=== PATIENT | male | born 1985 | race Two or more races ===

== ENCOUNTER 2016-04-29 14:10 | Emergency (ER) | payer SELFPAY ==
[~2016-04-29] VITALS: Ht 165.1 cm; Wt 68.0 kg
[2016-04-29 14:15] VITALS: BP 122/76
[2016-04-29 15:00] LABS: OBC FLU VALID
--- NOTE | 2016-04-29 15:24 | PHYS DOC ---
Past Medical History Past Medical History: No Pertinent History Past Surgical History: No Surgical History Additional Information: Nonsmoker Alcohol Use: Occasionally Drug Use: None Adult General Chief Complaint Chief Complaint: Influenza [facility] HPI Patient is a 30 year old male who presents with subjective fever and nonproductive cough for 2 days. He also complains of nasal drainage, bilateral eye itching, sore throat, diffuse body aches, and one episode of emesis. He denies chest pain, shortness of breath, ear pain, abdominal pain, or headache. He did not receive a flu shot this year. He last took ibuprofen at 10:00 this morning. He does not have a PCP. Review of Systems Review of Systems Constitutional: Denies fever or chills. Reports subjective fever. Eyes: Denies change in visual acuity, redness, or eye pain. [] HENT: Denies ear pain. Reports nasal drainage and sore throat. Respiratory: Denies shortness of breath. Reports nonproductive cough. Cardiovascular: Denies chest pain, palpitations or edema. [] GI: Denies abdominal pain, bloody stools or diarrhea. Reports one episode of vomiting. : Denies dysuria, hematuria or urinary frequency. [] Musculoskeletal: Denies back pain or joint pain. Reports diffuse myalgias. Integument: Denies rash or skin lesions. [] Neurologic: Denies headache, focal weakness or sensory changes. [] Endocrine: Denies polyuria or polydipsia. [] Psych: Denies anxiety or depression. [] All systems reviewed and negative unless otherwise stated in the HPI. Allergies Allergies Allergies Coded Allergies Type Severity Reaction Last Updated Verified No Known Drug Allergies 05/29/15 No Physical Exam Physical Exam Constitutional: Well developed, well nourished, no acute distress, non-toxic appearance. [] HENT: Normocephalic, atraumatic, bilateral external ears normal, oropharynx moist, no oral exudates, nose normal. Bilateral TMs without erythema or bulging. There is no posterior pharyngeal erythema or tonsillar edema. Bilateral nasal turbinates are swollen and erythematous with purulent drainage. Eyes: PERRLA, EOMI, conjunctiva normal, no discharge. [] Neck: Normal range of motion, no tenderness, supple, no stridor. [] Cardiovascular: Heart rate regular rhythm, no murmur [] Lungs & Thorax: Bilateral breath sounds clear to auscultation without wheezes, rales, or rhonchi. Skin: Warm, dry, no erythema, no rash. [] Neurologic: Alert and oriented X 3, normal motor function, normal sensory function, no focal deficits noted. [] Psychologic: Affect normal, judgement normal, mood normal. [] Current Patient Data Vital Signs Vital Signs Date Time Temp Pulse Resp B/P Pulse Ox O2 Delivery O2 Flow Rate FiO2 04/29/16 14:15 98.4 85 18 97 Room Air 98.4 Lab Values Laboratory Tests Test 04/29/16 14:21 Influenza Type A Antigen Negative (NEGATIVE) Influenza Type B Antigen Positive (NEGATIVE) EKG EKG [] Radiology/Procedures Radiology/Procedures [] Course & Med Decision Making Course & Med Decision Making Pertinent Labs and Imaging studies reviewed. (See chart for details) [] Dragon Disclaimer Dragon Disclaimer This electronic medical record was generated, in whole or in part, using a voice recognition dictation system. Departure Departure Impression: Primary Impression: Influenza B Disposition: 01 HOME, SELF-CARE Condition: STABLE Referrals: NO PCP (PCP) Patient Instructions: Influenza, Adult, [id number] Additional Instructions: You tested positive for influenza B. This is a viral infection and antibiotics do not help. Please take Tylenol and ibuprofen for fever and pain control. Please be sure you're drinking lots of water to stay hydrated and getting plenty of rest. Please stay home from work to avoid getting others sick. Return to the emergency department if any new or concerning symptoms. TERRELL HARDY Apr 29, 2016 15:24
== END 2016-04-29 15:31 | disposition home or self-care (01) ==
LOC: ER 14:10
DX: J10.1 Influenza due to other identified influenza virus with other respiratory manifestations (principal)
CPT/HCPCS: 87804; 99284